=== PATIENT | male | born 1955 | race Caucasian/White ===

== ENCOUNTER → 2017-04-30 | Outpatient (CLI) | payer BC | END | disposition home or self-care (01) | LOC: CDC 13:40 | DX: K40.90 Unilateral inguinal hernia, without obstruction or gangrene, not specified as recurrent (principal) | CPT/HCPCS: 93000 ==

== ENCOUNTER → 2017-05-12 | Day surgery (SDC) | payer BC ==
[~2017-05-12] VITALS: Ht 180.3 cm; Wt 87.0 kg
[~2017-05-12] MED LIST: ADVIL200 MG PO; PERCOCET 5/31 TABLET PO
[2017-05-12 08:36] VITALS: BP 124/86
[2017-05-12 13:12] VITALS: BP 141/84
[2017-05-12 14:10] VITALS: BP 131/85
[2017-05-12 15:18] VITALS: BP 156/95
== END | disposition home or self-care (01) ==
LOC: SDC 08:07
PROC: 0YU50JZ Supplement Right Inguinal Region with Synthetic Substitute, Open Approach (ICD-10-PCS; principal; 2017-05-12)
DX: K40.90 Unilateral inguinal hernia, without obstruction or gangrene, not specified as recurrent (principal); K21.0 Gastro-esophageal reflux disease with esophagitis; K44.9 Diaphragmatic hernia without obstruction or gangrene; F17.210 Nicotine dependence, cigarettes, uncomplicated; Z83.511 Family history of glaucoma
CPT/HCPCS: C1781; J1170; J2175; J2250; J2405; J3010; J3370